=== PATIENT | male | born 1975 | race Caucasian/White ===

== ENCOUNTER 2017-03-28 08:57 | Emergency (ER) | payer BC ==
[~2017-03-28] VITALS: Ht 177.8 cm; Wt 89.5 kg
[~2017-03-28 08:57] MED LIST: ADDE10; ALBU6.7H INH; CLON1 PO; MONT10TA2 PO; PERC5TAB12 PO
[2017-03-28 08:58] VITALS: BP 147/95; PULSE 92; RESP 20; TEMP 98.8; O2SAT 100
[2017-03-28] MEDS ORDERED: DEXT15CA5 PO (09:20)
[2017-03-28] MEDS ORDERED: ALBU6.7H INH (09:20)
[2017-03-28] MEDS ORDERED: DEXT10CA6 PO (09:20)
[2017-03-28] MEDS ORDERED: MONT10TA4 PO (09:20)
[2017-03-28 10:04] LABS: AUTOMATED NEUTROPHIL # 5.3 TH/MM3 (1.8-7.7); BASOPHIL % 0.4 % (0.0-2.0); EOSINOPHIL # 0.1 TH/MM3 (0-0.4); EOSINOPHIL % 0.9 % (0.0-4.0); HEMATOCRIT 45.8 % (39.0-51.0); HEMOGLOBIN 15.9 GM/DL (13.0-17.0); LYMPH % 19.7 % (9.0-44.0); LYMPHOCYTE # 1.4 TH/MM3 (1.0-4.8); MEAN CELL VOLUME 92.9 FL (80.0-100.0); MEAN CORPUSCULAR HEMOGLOBIN 32.2 PG (27.0-34.0); MEAN CORPUSCULAR HGB CONC 34.6 % (32.0-36.0); MEAN PLATELET VOLUME 7.1 FL (7.0-11.0); MONO % 6.7 % (0.0-8.0); MONOCYTE # 0.5 TH/MM3 (0-0.9); NEUT % 72.3 % (16.0-70.0); PLATELET COUNT 219 TH/MM3 (150-450); RED BLOOD COUNT 4.93 MIL/MM3 (4.50-5.90); RED CELL DISTRIBUTION WIDTH 13.6 % (11.6-17.2); WHITE BLOOD COUNT 7.3 TH/MM3 (4.0-11.0)
[2017-03-28 10:25] LABS: ALT (GPT) 26 U/L (12-78)
[2017-03-28 10:27] LABS: ALKALINE PHOSPHATASE 61 U/L (45-117); TOTAL BILIRUBIN ADULT 0.6 MG/DL (0.2-1.0); TOTAL PROTEIN 7.3 GM/DL (6.4-8.2)
[2017-03-28 10:28] LABS: ALBUMIN 3.9 GM/DL (3.4-5.0); AST (GOT) 23 U/L (15-37); BICARBONATE 32.7 MEQ/L (21.0-32.0); BLOOD UREA NITROGEN 10 MG/DL (7-18); CALCIUM 8.7 MG/DL (8.5-10.1); CHLORIDE 106 MEQ/L (98-107); CREATININE 0.76 MG/DL (0.60-1.30); GLOMERULAR FILTRATION RATE 111 ML/MIN (>89); GLUCOSE,RANDOM 97 MG/DL (74-106); SODIUM (NA) 143 MEQ/L (136-145)
[2017-03-28] MEDS ORDERED: SODIUM CHLOR 0.9% 1000 ML INJ 1,000 ML IV ONE (10:30)
--- NOTE | 2017-03-28 11:33 | PD ---
HPI Chief Complaint: Facial Pain or Swelling Time Seen by Provider: 11:09 Travel History International Travel<30 days: No Contact w/Intl Traveler<30days: No Traveled to known affect area: No History of Present Illness HPI This is a 42-year-old male who presents to the emergency department with malaise this been going on for 1 month, constant, feeling like he has no energy , moderate severity. He also reports that last night he started have some swelling of his left lower lip. He says this is happened to him once before and he doesn't know what the cause is. He is not on any Luis Miguel inhibitors. He doesn't know of any foods that he is allergic to. The patient did start taking Klonopin 1 month ago but he says he's taken in the past and has never had symptoms like this. PFSH Past Medical History Asthma: Yes Blood Disorders: No Cancer: No Cardiovascular Problems: No Endocrine: No Genitourinary: No Immune Disorder: No Musculoskeletal: No Neurologic: No Psychiatric: No Respiratory: Yes Social History Alcohol Use: Yes (WEEKENDS) Tobacco Use: No Substance Use: No Allergies-Medications (Allergen,Severity, Reaction): Coded Allergies: No Known Allergies (Verified Adverse Reaction, Unknown, 03/28/17) Reported Meds & Prescriptions Reported Meds & Active Scripts Active Reported Dextroamphetamine (Dextroamphetamine Sulfate) 15 Mg Cap 15 Mg PO DAILY Montelukast (Montelukast Sodium) 10 Mg Tab 10 Mg PO HS Proventil Hfa 6.7 GM Inh (Albuterol Sulfate) 90 Mcg/Act Aer 2 Puff INH Q4-6H PRN Review of Systems Except as stated in HPI: all other systems reviewed are Neg Physical Exam Narrative GENERAL:Well appearing, no acute distress SKIN: Focused skin assessment warm and dry. HEAD: Atraumatic. Normocephalic. EYES: Pupils equal and round. No injection or drainage. ENT: Moist mucous membranes. Some edema of the left lower lip with no posterior pharyngeal swelling or edema of the uvula NECK: Trachea midline. CARDIOVASCULAR: Regular rate and rhythm. No murmur appreciated. RESPIRATORY: Clear to auscultation. Breath sounds equal bilaterally. GASTROINTESTINAL: Abdomen soft, non-tender, nondistended. MUSCULOSKELETAL: No obvious deformities. NEUROLOGICAL: Awake and alert. No obvious cranial nerve deficits. Moving all extremities. PSYCHIATRIC: Appropriate mood and affect; insight and judgment normal. Data Data Last Documented VS Vital Signs Date Time Temp Pulse Resp B/P (MAP) Pulse Ox O2 Delivery O2 Flow Rate FiO2 03/28/17 08:58 98.8 92 20 147/95 (112) 100 Room Air Orders Orders Complete Blood Count With Diff (03/28/17 09:25) Comprehensive Metabolic Panel (03/28/17 09:25) Thyroid Stimulating Hormone (03/28/17 10:30) Influenzae A/B Antigen (03/28/17 10:30) Sodium Chlor 0.9% 1000 Ml Inj (Ns 1000 M (03/28/17 10:30) Labs Laboratory Tests Test 03/28/17 09:30 White Blood Count 7.3 TH/MM3 Red Blood Count 4.93 MIL/MM3 Hemoglobin 15.9 GM/DL Hematocrit 45.8 % Mean Corpuscular Volume 92.9 FL Mean Corpuscular Hemoglobin 32.2 PG Mean Corpuscular Hemoglobin Concent 34.6 % Red Cell Distribution Width 13.6 % Platelet Count 219 TH/MM3 Mean Platelet Volume 7.1 FL Neutrophils (%) (Auto) 72.3 % Lymphocytes (%) (Auto) 19.7 % Monocytes (%) (Auto) 6.7 % Eosinophils (%) (Auto) 0.9 % Basophils (%) (Auto) 0.4 % Neutrophils # (Auto) 5.3 TH/MM3 Lymphocytes # (Auto) 1.4 TH/MM3 Monocytes # (Auto) 0.5 TH/MM3 Eosinophils # (Auto) 0.1 TH/MM3 Basophils # (Auto) 0.0 TH/MM3 CBC Comment DIFF FINAL Differential Comment Blood Urea Nitrogen 10 MG/DL Creatinine 0.76 MG/DL Random Glucose 97 MG/DL Total Protein 7.3 GM/DL Albumin 3.9 GM/DL Calcium Level 8.7 MG/DL Alkaline Phosphatase 61 U/L Aspartate Amino Transf (AST/SGOT) 23 U/L Alanine Aminotransferase (ALT/SGPT) 26 U/L Total Bilirubin 0.6 MG/DL Sodium Level 143 MEQ/L Potassium Level 4.3 MEQ/L Chloride Level 106 MEQ/L Carbon Dioxide Level 32.7 MEQ/L Anion Gap 4 MEQ/L Estimat Glomerular Filtration Rate 111 ML/MIN Thyroid Stimulating Hormone 3rd Gen 0.276 uIU/ML MDM Medical Decision Making Medical Screen Exam Complete: Yes Emergency Medical Condition: Yes Interpretation(s) Afebrile, mild tachycardia, mild hypertension No leukocytosis TSH is slightly low Influenza is negative Differential Diagnosis dehydration, electrolyte abnormality, influenza, hypothyroidism, hyperthyrodisim , medication side effect Narrative Course This is a 42-year-old male who presents to the emergency department with generalized fatigue that spent going on for one month associated with some lip swelling today. Labs were obtained which were reassuring with the exception of a slightly low TSH. His lip appears to be a local allergic reaction which I think will respond to Benadryl alone and he has no other oropharyngeal involvement. Labs demonstrate a mildly low TSH. I suspect his symptoms are due to Klonopin use. I advised him to slowly taper his Klonopin dose and to follow up with his primary care physician regarding his thyroid studies. Otherwise patient is nontoxic appearing and appropriate for outpatient management. Diagnosis Primary Impression: Low TSH level Additional Impression: Weakness Patient Instructions: General Instructions Additional Instructions: Have your doctor perform thyroid studies as an outpatient. Slowly taper your Klonopin dose as this may be affecting your energy level. Med/Other Pt SpecificInfo: No Change to Meds Disposition: 01 DISCHARGE HOME Condition: Stable Yaneli Bennett MD Mar 28, 2017 11:33
== END 2017-03-28 13:03 | disposition home or self-care (01) ==
LOC: NEPD 08:57
DX: R53.1 Weakness (principal); R53.83 Other fatigue; R22.0 Localized swelling, mass and lump, head; R00.0 Tachycardia, unspecified; I10 Essential (primary) hypertension; J45.909 Unspecified asthma, uncomplicated; Z79.899 Other long term (current) drug therapy
CPT/HCPCS: 80053; 84443; 85025; 87804; 99283